=== PATIENT | female | born 1975 | race Caucasian/White ===

== ENCOUNTER 2021-03-15 22:59 | Emergency (ER) | payer BC ==
[~2021-03-15] VITALS: Ht 172.7 cm; Wt 69.0 kg
[2021-03-15] MEDS ORDERED: ONDANSETRON HCL 4MG/2ML INJ IV ONE (23:30)
[2021-03-15] MEDS ORDERED: FENTANYL CITRATE/PF 50MCG/ML 2ML VIAL IV ONE (23:30)
[2021-03-15] MEDS ORDERED: PROPOFOL 200MG/20ML VIAL IV ONE (23:30)
[2021-03-16 01:20] VITALS: BP 153/79
== END 2021-03-16 01:20 | disposition home or self-care (01) ==
LOC: ER 22:59
DX: S43.014A Anterior dislocation of right humerus, initial encounter (principal); W01.198A Fall on same level from slipping, tripping and stumbling with subsequent striking against other object, initial encounter; Y93.01 Activity, walking, marching and hiking; Y92.480 Sidewalk as the place of occurrence of the external cause
CPT/HCPCS: 23650; 73030; 96374; 96375; 99152; 99285; J2405; J2704; J3010